=== PATIENT | male | born 1985 | race Caucasian/White ===

== ENCOUNTER 2023-01-03 14:08 | Emergency (ER) | payer MEDICAID ==
[~2023-01-03] VITALS: Ht 154.9 cm; Wt 59.5 kg
[2023-01-03 14:21] VITALS: BP 143/104; PULSE 105; RESP 19; TEMP 97; O2SAT 96
--- NOTE | 2023-01-03 14:25 | NUR ---
gauze applied to wound
[2023-01-03] MEDS ORDERED: LIDOCAINE 1% 500 MG/ 50 ML VIAL INJ ONE (15:55)
[2023-01-03 16:13] VITALS: O2SAT 96
--- NOTE | 2023-01-03 16:26 | NUR ---
37 YO M PRESENTS WITH LAC TO LT HAND THUMB 3 HRS AGO. PT DENIES PAIN. OPEN INCISION NOTED, BLEED CONTROLLED. SAFETY MAINTAINED. NKMariana HX: DENIES
[2023-01-03] MEDS ORDERED: LIDOCAINE MPF 1% 5 ML ONE (16:40)
--- NOTE | 2023-01-03 16:51 | NUR ---
SAHU AT BEDSIDE REPAIRING LACERATION TO LT THUMB
[2023-01-03] MEDS ORDERED: IBUP-2213 PO (17:01)
[2023-01-03] MEDS ORDERED: CEPH-588 PO (17:08)
[2023-01-03] MEDS ORDERED: BACI-418 TP (17:08)
--- NOTE | 2023-01-03 17:15 | NUR ---
The patient's care was reviewed and supervised by KT MATTA RN.
--- NOTE | 2023-01-03 17:47 | NUR ---
Patient discharged with v/s stable. Written and verbal after care instructions given and explained. Patient alert, oriented and verbalized understanding of instructions. Ambulatory with steady gait. All questions addressed prior to discharge. ID band removed. Patient advised to follow up with PMD. Rx of BACITRACIN ZINC, CEPHALEXIN, IBUPROFEN given. Patient educated on indication of medication including possible reaction and side effects. Opportunity to ask questions provided and answered.
== END 2023-01-03 17:47 | disposition home or self-care (01) ==
LOC: MED 14:08
DX: S61.012A Laceration without foreign body of left thumb without damage to nail, initial encounter (principal); Z79.899 Other long term (current) drug therapy; W26.8XXA Contact with other sharp object(s), not elsewhere classified, initial encounter; Y93.89 Activity, other specified; Y92.89 Other specified places as the place of occurrence of the external cause; Y99.8 Other external cause status
CPT/HCPCS: 12001; 73140; 90471; 90715; 99283; J2001